=== PATIENT | male | born 1985 | race Hispanic/Latino ===

== ENCOUNTER 2018-06-30 14:16 | Emergency (ER) | payer SELFPAY ==
--- NOTE | 2018-06-30 15:04 | EDPHYS ---
Physician Documentation [facility] Name: Hiram Mobley Age: 32 yrs Sex: Male : 1985 Arrival Date: 06/30/2018 Time: 14:18 Bed 24 Private MD: None, None ED Physician Claus Stanford HPI: 06/30 14:49 This 32 yrs old Male presents to ER via Ambulatory with complaints of Rectal kb Pain. 14:49 The patient presents to the emergency department with pain in the rectal area, that is kb mild, that is moderate. Onset: The symptoms/episode began/occurred 3 day(s) ago. Context: the patient "I took a shit. A big one". Modifying factors: The symptoms are aggravated by bowel movement. Associate signs and symptoms: The patient has no apparent associated signs or symptoms. The patient has not experienced similar symptoms in the past. The patient has not recently seen a physician. Historical: - Allergies: 14:28 No Known Allergies; aj1 - Home Meds: 14:28 None [Active]; aj1 - PMHx: 14:28 None; aj1 - PSHx: 14:28 hand surgery; aj1 - Immunization history:: Flu vaccine is not up to date. - Social history:: Smoking status: Patient uses tobacco products, smokes one-half pack cigarettes per day. - Ebola Screening: : Patient denies travel to an Ebola-affected area in the 21 days before illness onset. ROS: 14:49 Constitutional: Negative for fever, chills, and weight loss, Cardiovascular: Negative kb for chest pain, palpitations, and edema, Respiratory: Negative for shortness of breath, cough, wheezing, and pleuritic chest pain, MS/Extremity: Negative for injury and deformity, Skin: Negative for injury, rash, and discoloration, Neuro: Negative for headache, weakness, numbness, tingling, and seizure. 14:49 Abdomen/GI: Positive for rectal pain. Exam: 14:52 Constitutional: This is a well developed, well nourished patient who is awake, alert, kb and in no acute distress. Head/Face: Normocephalic, atraumatic. Chest/axilla: Normal chest wall appearance and motion. Nontender with no deformity. No lesions are appreciated. Cardiovascular: Regular rate and rhythm with a normal S1 and S2. No gallops, murmurs, or rubs. Normal PMI, no JVD. No pulse deficits. Respiratory: Lungs have equal breath sounds bilaterally, clear to auscultation and percussion. No rales, rhonchi or wheezes noted. No increased work of breathing, no retractions or nasal flaring. Abdomen/GI: Soft, non-tender, with normal bowel sounds. No distension or tympany. No guarding or rebound. No evidence of tenderness throughout. Skin: Warm, dry with normal turgor. Normal color with no rashes, no lesions, and no evidence of cellulitis. MS/ Extremity: Pulses equal, no cyanosis. Neurovascular intact. Full, normal range of motion. Neuro: Awake and alert, GCS 15, oriented to person, place, time, and situation. Cranial nerves II-XII grossly intact. Motor strength 5/5 in all extremities. Sensory grossly intact. Cerebellar exam normal. Normal gait. 15:02 Abdomen/GI: Rectal exam: hemorrhoid(s), external, with inflammation, with pain, without kb bleeding, without thrombosis. Vital Signs: 14:28 BP 119 / 78; Pulse 75; Resp 18; Temp 98.2(TE); Pulse Ox 98% on R/A; Weight 83.91 kg aj1 (R); Height 5 ft. 10 in. (177.80 cm) (R); Pain 8/10; 14:28 Body Mass Index 26.54 (83.91 kg, 177.80 cm) aj1 MDM: 14:45 Patient medically screened. kb 14:49 Patient medically screened. kb 14:49 Data reviewed: vital signs, nurses notes. Data interpreted: Pulse oximetry: on room air kb is 98 %. Interpretation: normal. 15:02 Counseling: I had a detailed discussion with the patient and/or guardian regarding: the kb historical points, exam findings, and any diagnostic results supporting the discharge/admit diagnosis, the need for outpatient follow up, a family practitioner, a general surgeon. Administered Medications: No medications were administered Disposition: 07/01 07:01 Co-signature as Attending Physician, Claus Stanford MD I agree with the assessment and luis plan of care. Disposition: 06/30/18 15:03 Discharged to Home. Impression: Hemorrhoids and perianal venous thrombosis. - Condition is Stable. - Discharge Instructions: Hemorrhoids, [id number]. - Prescriptions for Anusol- HC 2.5 % Rectal Cream - Apply to affected area 1 application by TOPICAL route every 8 hours As needed; 30 gram. - Medication Reconciliation Form, Thank You Letter, Antibiotic Education, Prescription Opioid Use form. - Follow up: Emergency Department; When: As needed; Reason: Worsening of condition. Follow up: Private Physician; When: 2 - 3 days; Reason: Recheck today's complaints, Continuance of care, Re-evaluation by your physician. Signatures: Joi Downs, JUAN JOSE-C JUAN JOSE-Concetta Bose, RN RN aj1 Claus Stanford MD MD cha Lowrey, Tammy, RN RN tl3 Corrections: (The following items were deleted from the chart) 06/30 15:07 15:03 06/30/2018 15:03 Discharged to Home. Impression: Hemorrhoids and perianal venous tl3 thrombosis. Condition is Stable. Forms are Medication Reconciliation Form, Thank You Letter, Antibiotic Education, Prescription Opioid Use. Follow up: Emergency Department; When: As needed; Reason: Worsening of condition. Follow up: Private Physician; When: 2 - 3 days; Reason: Recheck today's complaints, Continuance of care, Re-evaluation by your physician. kb
--- NOTE | 2018-06-30 15:04 | ER ---
Nurse's Notes [facility] Name: Hiram Mobley Age: 32 yrs Sex: Male : 1985 Arrival Date: 06/30/2018 Time: 14:18 Bed 24 Private MD: None, None Diagnosis: Hemorrhoids and perianal venous thrombosis Presentation: 06/30 14:25 Presenting complaint: Patient states: Reports rectal pain for the past 2 days. Reports aj1 blood when he wipes, and some blood streaked stool. Denies N/V/D, denies constipation, denies abdominal pain. Transition of care: patient was not received from another setting of care. Onset of symptoms was June 28, 2018. Risk Assessment: Do you want to hurt yourself or someone else? Patient reports no desire to harm self or others. Initial Sepsis Screen: Does the patient meet any 2 criteria? No. Patient's initial sepsis screen is negative. Does the patient have a suspected source of infection? No. Patient's initial sepsis screen is negative. Care prior to arrival: None. 14:25 Method Of Arrival: Ambulatory aj 14:25 Acuity: HEIDI 4 aj1 Triage Assessment: 14:28 General: Appears in no apparent distress. uncomfortable, Behavior is calm, cooperative, aj1 appropriate for age. Pain: Complains of pain in gluteal cleft Pain currently is 8 out of 10 on a pain scale. Neuro: Level of Consciousness is awake, alert, obeys commands. Cardiovascular: Patient's skin is warm and dry. Respiratory: Airway is patent Respiratory effort is even, unlabored, Respiratory pattern is regular, symmetrical. Historical: - Allergies: 14:28 No Known Allergies; aj1 - Home Meds: 14:28 None [Active]; aj1 - PMHx: 14:28 None; aj1 - PSHx: 14:28 hand surgery; aj1 - Immunization history:: Flu vaccine is not up to date. - Social history:: Smoking status: Patient uses tobacco products, smokes one-half pack cigarettes per day. - Ebola Screening: : Patient denies travel to an Ebola-affected area in the 21 days before illness onset. Screenin:56 Abuse screen: Denies threats or abuse. Nutritional screening: No deficits noted. tl3 Tuberculosis screening: No symptoms or risk factors identified. Fall Risk None identified. Assessment: 14:56 General: Appears in no apparent distress. uncomfortable, slender, well groomed, well tl3 developed, well nourished, Behavior is calm, cooperative, appropriate for age. Pain: Complains of pain in rectum. Neuro: Level of Consciousness is awake, alert, obeys commands, Oriented to person, place, time, situation, Appropriate for age. Cardiovascular: Patient's skin is warm and dry. Respiratory: Airway is patent Respiratory effort is even, unlabored, Respiratory pattern is regular, symmetrical. GI: Reports hemorrhoids, two days ago pt had BM that was painful and there was a small amt of blood when he wiped, today it happened again, he took a picture of his rectum with a purple protrusion. Vital Signs: 14:28 BP 119 / 78; Pulse 75; Resp 18; Temp 98.2(TE); Pulse Ox 98% on R/A; Weight 83.91 kg aj1 (R); Height 5 ft. 10 in. (177.80 cm) (R); Pain 8/10; 14:28 Body Mass Index 26.54 (83.91 kg, 177.80 cm) aj1 ED Course: 14:18 Patient arrived in ED. sb2 14:19 None, None is Private Physician. sb2 14:28 Triage completed. aj1 14:29 Joi Downs FNP-C is PHCP. kb 14:29 Claus Stanford MD is Attending Physician. kb 14:30 Arm band placed on Patient placed in waiting room, Patient notified of wait time. aj1 14:45 Joi Downs FNP-C is PHCP. kb 14:45 Claus Stanford MD is Attending Physician. kb 14:53 Debbie Whittaker, FRANCES is Primary Nurse. tl3 14:56 Patient has correct armband on for positive identification. Placed in gown. Bed in low tl3 position. 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 Patient did not have IV access during this tl3 emergency room visit. Administered Medications: No medications were administered Outcome: 15:03 Discharge ordered by . kb 15:07 Discharged to tl3 15:07 Discharged to home ambulatory. 15:07 Condition: good 15:07 Discharge instructions given to patient, Instructed on discharge instructions, follow up and referral plans. medication usage, Demonstrated understanding of instructions, follow-up care, medications, Prescriptions given X 1. 15:07 Patient left the ED. tl3 Signatures: Joi Downs, JUAN JOSE-C LAW ENFORCEMENT INSTRUCTOR-Concetta Bose RN RN aj1 Kenzie Anderson sb2 Debbie Whittaker, RN RN tl3 Corrections: (The following items were deleted from the chart) 14:30 14:28 Arm band placed on Patient placed in an exam room, aj1 aj1
== END 2018-06-30 15:07 | disposition home or self-care (01) ==
LOC: ER 14:16
DX: K64.5 Perianal venous thrombosis (principal); K64.9 Unspecified hemorrhoids; F17.210 Nicotine dependence, cigarettes, uncomplicated
CPT/HCPCS: 99283

== ENCOUNTER 2018-09-15 11:26 | Emergency (ER) | payer SELFPAY ==
[2018-09-15 12:23] LABS: Absolute Lymphocytes (CBC) 1.9 K/uL (0.7-4.9); Absolute Monocytes 0.7 K/uL (0.1-1.3); Basophils % 0.6 % (0-1.3); Eosinophils % 2.5 % (0-4.4); Hematocrit 42.1 % (39.6-49.0); MCV 91.2 fL (80-100); MPV 8.2 fL (7.6-11.3); Monocytes % 12.6 % (3.3-12.3); RBC Red Blood Cell Count 4.62 M/uL (4.33-5.43)
[2018-09-15 12:38] LABS: Protime INR 0.95
[2018-09-15 12:45] LABS: ALT/SGPT 23 U/L (12-78); AST/SGOT 19 U/L (15-37); Albumin 3.6 g/dL (3.4-5.0); Alkaline Phosphatase 61 U/L (45-117); BUN Blood Urea Nitrogen 13 mg/dL (7-18); Bicarbonate 29 mmol/L (21-32); Bilirubin Direct 0.2 mg/dL (0-0.2); Bilirubin Total 0.5 mg/dL (0.2-1.0); Glucose Level 94 mg/dL (74-106); Lipase 100 U/L (73-393); Protein, Total 7.1 g/dL (6.4-8.2); Sodium Level 140 mmol/L (136-145)
--- NOTE | 2018-09-15 13:59 | EDPHYS ---
Physician Documentation [facility] Name: Hiram Mobley Age: 33 yrs Sex: Male : 1985 Arrival Date: 09/15/2018 Time: 11:29 Bed 19 Private MD: ED Physician Claus Stanford HPI: 09/15 12:05 This 33 yrs old Male presents to ER via Ambulatory with complaints of Bloody cp Stools. 12:05 The patient presents to the emergency department with bleeding from the rectum/anus. cp Onset: The symptoms/episode began/occurred this morning. Context: the patient has no known special context relating to the rectal area complaint(s), noticed in toilet after bowel movement. 12:05 Associate signs and symptoms: Pertinent negatives: abdominal pain, constipation, cp diarrhea, dysuria, fever, vomiting. Historical: - Allergies: 11:35 No Known Allergies; jl7 - Home Meds: 11:35 None [Active]; jl7 - PMHx: 11:35 None; jl7 - PSHx: 11:35 right hand; jl7 - Immunization history:: Adult Immunizations not up to date. - Social history:: Smoking status: Patient uses tobacco products, smokes one pack cigarettes per day. Patient uses alcohol, 40 oz /day. - Ebola Screening: : No symptoms or risks identified at this time. ROS: 12:10 Constitutional: Negative for body aches, chills, fever, poor PO intake. cp 12:10 Eyes: Negative for injury, pain, redness, and discharge. cp 12:10 ENT: Negative for drainage from ear(s), ear pain, sore throat, difficulty swallowing, difficulty handling secretions. 12:10 Cardiovascular: Negative for chest pain, edema, palpitations. 12:10 Respiratory: Negative for cough, shortness of breath, wheezing. 12:10 Abdomen/GI: Positive for rectal bleeding, Negative for abdominal pain, vomiting, diarrhea, constipation, anorexia. 12:10 : Negative for urinary symptoms. 12:10 Skin: Negative for cellulitis, rash. 12:10 Neuro: Negative for altered mental status, headache, syncope, near syncope, weakness. 12:10 All other systems are negative. Exam: 12:25 Constitutional: The patient appears in no acute distress, alert, awake, comfortable, cp non-toxic, well developed, well nourished. 12:25 Head/Face: Normocephalic, atraumatic. Eyes: Pupils equal round and reactive to light, cp extra-ocular motions intact. Lids and lashes normal. Conjunctiva and sclera are non-icteric and not injected. Cornea within normal limits. Periorbital areas with no swelling, redness, or edema. ENT: Nares patent. No nasal discharge, no septal abnormalities noted. Tympanic membranes are normal and external auditory canals are clear. Oropharynx with no redness, swelling, or masses, exudates, or evidence of obstruction, uvula midline. Mucous membranes moist. Chest/axilla: Normal chest wall appearance and motion. Nontender with no deformity. No lesions are appreciated. 12:25 Cardiovascular: Rate: bradycardic, Rhythm: regular, Heart sounds: murmur, not appreciated, Edema: is not appreciated. 12:25 Respiratory: the patient does not display signs of respiratory distress, Respirations: normal, no use of accessory muscles, no retractions, no splinting, no tachypnea, labored breathing, is not present, Breath sounds: are clear throughout, no decreased breath sounds, no stridor, no wheezing. 12:25 Abdomen/GI: Inspection: abdomen appears normal, Bowel sounds: active, all quadrants, Palpation: abdomen is soft and non-tender, in all quadrants, rebound tenderness, is not appreciated, involuntary guarding, is not appreciated. 12:25 Back: pain, is absent, ROM is normal. 12:25 : Rectal exam: Stool: brown, Guaiac testing: results were negative for occult blood, hemorrhoid(s), are not appreciated, fissure, is not appreciated. 12:25 Skin: cellulitis, is not appreciated, no rash present. Vital Signs: 11:35 BP 126 / 81; Pulse 54; Resp 16 S; Temp 98.1(O); Pulse Ox 99% on R/A; Weight 79.83 kg jl7 (R); Height 5 ft. 9 in. (175.26 cm) (R); Pain 0/10; 12:15 BP 126 / 74; Pulse 56 MON; Resp 17 S; Temp 98.1; Pulse Ox 99% on R/A; Pain 0/10; sg 13:20 BP 122 / 80; Pulse 55; Resp 16; Temp 98.2; Pulse Ox 99% on R/A; Pain 0/10; sg 11:35 Body Mass Index 25.99 (79.83 kg, 175.26 cm) jl7 MDM: 11:38 Patient medically screened. cp 12:00 Differential diagnosis: hemorrhoids, fissure, abscess. cp 13:57 Data reviewed: vital signs, nurses notes, lab test result(s). 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 ED course: VSS. Labs reviewed and stable. Will discharge to home for continued monitoring. 09/15 11:52 Order name: Basic Metabolic Panel; Complete Time: 12:50 cp 09/15 11:52 Order name: CBC with Diff; Complete Time: 12:32 cp 09/15 12:32 Interpretation: Normal except: MN% 12.6. cp 09/15 11:52 Order name: Creatinine for Radiology; Complete Time: 12:50 cp 09/15 11:52 Order name: Hepatic Function; Complete Time: 12:50 cp 09/15 11:52 Order name: Lipase; Complete Time: 12:50 cp 09/15 11:52 Order name: PT-INR; Complete Time: 12:50 cp 09/15 11:52 Order name: IV Saline Lock; Complete Time: 12:14 cp 09/15 11:52 Order name: Labs collected and sent; Complete Time: 12:14 cp 09/15 11:52 Order name: Ptt, Activated; Complete Time: 12:50 cp Administered Medications: No medications were administered Disposition: 09/16 08:55 Co-signature as Attending Physician, Claus Stanford MD I agree with the assessment and luis plan of care. Disposition: 09/15/18 13:58 Discharged to Home. Impression: Blood in Stool. - Condition is Stable. - Discharge Instructions: Gastrointestinal Bleeding. - Work release form, Medication Reconciliation Form, Thank You Letter, Antibiotic Education, Prescription Opioid Use form. - Follow up: Rodolfo Muniz MD; When: 1 - 2 days; Reason: Recheck today's complaints. - Problem is new. - Symptoms have improved. Signatures: Dispatcher [employer] EDMS Leatha Santiago Claus Terrell MD MD cha Page, Corey, PA PA cp Leal, Jahala, RN RN jl7 Corrections: (The following items were deleted from the chart) 09/15 14:08 13:58 09/15/2018 13:58 Discharged to Home. Impression: Blood in Stool. Condition is bd Stable. Forms are Work release form, Medication Reconciliation Form, Thank You Letter, Antibiotic Education, Prescription Opioid Use. Follow up: Rodolfo Muniz; When: 1 - 2 days; Reason: Recheck today's complaints. Problem is new. Symptoms have improved. cp :09/14 12:15 Constitutional: The patient appears in no acute distress, alert, awake, cp non-toxic, well developed, well nourished, cp 09/15 18:09/14 12:15 Head/Face: Normocephalic, atraumatic. cp cp 09/15 18:09/14 12:15 Eyes: Periorbital structures: appear normal, Conjunctiva: normal, no cp exudate, no injection, Sclera: no appreciated abnormality, Lids and lashes: appear normal, bilaterally, cp 09/15 18:09/14 12:15 ENT: External ear(s): are unremarkable, Nose: is normal, Mouth: Lips: cp moist, Oral mucosa: pink and intact, moist, Posterior pharynx: is normal, airway is patent, no erythema, no exudate, cp 09/15 18:09/14 12:15 Chest/axilla: Inspection: normal, Palpation: is normal, no crepitus, no cp tenderness, cp 09/15 18:09/14 12:15 Cardiovascular: Rate: bradycardic, Rhythm: regular, cp cp 09/15 18:09/14 12:15 Respiratory: the patient does not display signs of respiratory distress, cp Respirations: normal, no use of accessory muscles, no retractions, no splinting, no tachypnea, labored breathing, is not present, Breath sounds: are clear throughout, no decreased breath sounds, no stridor, no wheezing, cp 09/15 18:09/14 12:15 Abdomen/GI: Inspection: abdomen appears normal, Bowel sounds: active, all cp quadrants, Palpation: abdomen is soft and non-tender, in all quadrants, rebound tenderness, is not appreciated, voluntary guarding, is not appreciated, involuntary guarding, is not appreciated, cp 09/15 18:09/14 12:15 Back: pain, is absent, ROM is normal, cp cp 09/15 18:09/14 12:15 Skin: cellulitis, is not appreciated, no rash present. cp cp 09/15 18:09/14 12:15 Neuro: Orientation: to person, place \T\ time. Mentation: is normal, cp Cerebellar function: is grossly normal, Motor: moves all fours, strength is normal, Sensation: is normal, cp
--- NOTE | 2018-09-15 13:59 | ER ---
Nurse's Notes [facility] Name: Hiram Mobley Age: 33 yrs Sex: Male : 1985 Arrival Date: 09/15/2018 Time: 11:29 Bed 19 Private MD: Diagnosis: Blood in Stool Presentation: 09/15 11:33 Presenting complaint: Patient states: Reports a lot of blood in the toilet after having jl7 a BM this morning. Transition of care: patient was not received from another setting of care. Onset of symptoms was September 15, 2018. Risk Assessment: Do you want to hurt yourself or someone else? Patient reports no desire to harm self or others. Initial Sepsis Screen: Does the patient meet any 2 criteria? No. Patient's initial sepsis screen is negative. Does the patient have a suspected source of infection? No. Patient's initial sepsis screen is negative. Care prior to arrival: None. 11:33 Method Of Arrival: Ambulatory [facility] 11:33 Acuity: HEIDI 3 jl7 Triage Assessment: 11:35 General: Appears in no apparent distress. uncomfortable, Behavior is cooperative, jl7 anxious. Pain: Denies pain. GI: Reports bloody stool, Patient currently denies diarrhea, nausea, vomiting. Historical: - Allergies: 11:35 No Known Allergies; jl7 - Home Meds: 11:35 None [Active]; jl7 - PMHx: 11:35 None; jl7 - PSHx: 11:35 right hand; jl7 - Immunization history:: Adult Immunizations not up to date. - Social history:: Smoking status: Patient uses tobacco products, smokes one pack cigarettes per day. Patient uses alcohol, 40 oz /day. - Ebola Screening: : No symptoms or risks identified at this time. Screenin:51 Abuse screen: Denies threats or abuse. Denies injuries from another. Nutritional sg screening: No deficits noted. Tuberculosis screening: No symptoms or risk factors identified. Never had TB. Fall Risk None identified. Assessment: 11:50 General: Appears in no apparent distress. comfortable, slender, well groomed, well sg developed, well nourished, Behavior is calm, cooperative, appropriate for age. Pain: Denies pain. Neuro: No deficits noted. Cardiovascular: Patient's skin is warm and dry. Respiratory: Respiratory effort is even, unlabored, Respiratory pattern is regular, symmetrical. GI: Reports diarrhea, bloody stool, Patient currently denies constipation, nausea, vomiting. : No signs and/or symptoms were reported regarding the genitourinary system. EENT: No deficits noted. Derm: Skin is pink, warm \T\ dry. Musculoskeletal: Circulation, motion, and sensation intact. Swelling absent. Vital Signs: 11:35 BP 126 / 81; Pulse 54; Resp 16 S; Temp 98.1(O); Pulse Ox 99% on R/A; Weight 79.83 kg jl7 (R); Height 5 ft. 9 in. (175.26 cm) (R); Pain 0/10; 12:15 BP 126 / 74; Pulse 56 MON; Resp 17 S; Temp 98.1; Pulse Ox 99% on R/A; Pain 0/10; sg 13:20 BP 122 / 80; Pulse 55; Resp 16; Temp 98.2; Pulse Ox 99% on R/A; Pain 0/10; sg 11:35 Body Mass Index 25.99 (79.83 kg, 175.26 cm) jl7 ED Course: 11:29 Patient arrived in ED. as 11:34 Triage completed. jl7 11:36 Arm band placed on right wrist. jl7 11:38 [facility]. cp 11:38 Claus Stanford MD is Attending Physician. cp 11:50 Logan Reynolds, FRANCES is Primary Nurse. sg 11:50 Initial lab(s) drawn, by in, sent to lab. Inserted saline lock: 20 gauge in right sg antecubital area, using aseptic technique. Blood collected. 11:51 Patient has correct armband on for positive identification. Bed in low position. Call sg light in reach. Side rails up X2. Pulse ox on. NIBP on. Warm blanket given. Head of bed elevated. 13:57 Rodolfo Muniz MD is Referral Physician. cp 14:05 No provider procedures requiring assistance completed. IV discontinued, intact, sg bleeding controlled, No redness/swelling at site. Pressure dressing applied. Administered Medications: No medications were administered Outcome: 13:58 Discharge ordered by . cp 14:05 Discharged to home ambulatory, with family. sg 14:05 Condition: good 14:05 Discharge instructions given to patient, Instructed on discharge instructions, follow up and referral plans. medication usage, safety practices, Demonstrated understanding of instructions, follow-up care. 14:08 Patient left the ED. bd Signatures: Leatha Santiago Steven, RN RN Tootie Yanez Corey, PA PA cp Leal, Jahala, RN RN jl7
== END 2018-09-15 14:08 | disposition home or self-care (01) ==
LOC: ER 11:26
DX: K92.1 Melena (principal); F17.210 Nicotine dependence, cigarettes, uncomplicated
CPT/HCPCS: 36415; 80048; 80076; 83690; 85025; 85610; 85730; 99284

== ENCOUNTER 2018-09-24 13:52 | Emergency (ER) | payer SELFPAY ==
[2018-09-24] MEDS ORDERED: METOCLOPRAMIDE 10 MG/2mL INJ ONE (15:00)
[2018-09-24] MEDS ORDERED: hydrOXYzine HCl 50 MG/ML VIAL IM ONE (15:00)
--- NOTE | 2018-09-24 15:20 | RAD REPORT ---
EXAM DESCRIPTION: US - Extremity Nonvascular Complete - 09/24/2018 3:10 pm CLINICAL HISTORY: Right axillary mass COMPARISON: None FINDINGS: Patient has a palpable area within the right axilla. A 2.9 centimeter hypoechoic mass is s een which contains vascularity. IMPRESSION: 2.9 centimeter hypoechoic mass within the right axilla which is palpable probably repres enting a lymph node. It may be reactive in nature or neoplastic. Follow-up is recommend
[2018-09-24 15:29] LABS: BUN Blood Urea Nitrogen 16 mg/dL (7-18); Bicarbonate 29 mmol/L (21-32); Glucose Level 93 mg/dL (74-106); Potassium 4.4 mmol/L (3.5-5.1); Sodium Level 139 mmol/L (136-145)
--- NOTE | 2018-09-24 15:32 | RAD REPORT ---
EXAM DESCRIPTION: CT - Head Brain Wo Cont - 09/24/2018 2:55 pm CLINICAL HISTORY: Headache COMPARISON: None. TECHNIQUE: Computed axial tomography of the head was obtained. IV contrast was not requested. All CT scans are performed using dose optimization technique as appropriate and may include automated exposure control or mA/KV adjustment according to patient size. FINDINGS: An intracranial bleed is not seen . The ventricles are normal in caliber. No extra-axial fluid collection is noted. Fluid within the sinuses/ mastoids is not seen. IMPRESSION: No acute intracranial abnormality is seen. If patient's symptoms persist MRI of the bra in would be recommended.
[2018-09-24 15:33] LABS: Absolute Lymphocytes (CBC) 1.8 K/uL (0.7-4.9); Absolute Monocytes 0.9 K/uL (0.1-1.3); Absolute Neutrophil 3.8 K/uL (1.8-8.0); Basophils % 0.6 % (0-1.3); Eosinophils % 2.1 % (0-4.4); Hematocrit 43.5 % (39.6-49.0); MCH 31.6 pg (27.0-35.0); MCV 90.7 fL (80-100); MPV 8.4 fL (7.6-11.3); Monocytes % 13.4 % (3.3-12.3); RBC Red Blood Cell Count 4.79 M/uL (4.33-5.43)
--- NOTE | 2018-09-24 15:53 | ER ---
Nurse's Notes [facility] Name: Hiram Mobley Age: 33 yrs Sex: Male : 1985 Arrival Date: 09/24/2018 Time: 13:54 Bed 13 Private MD: None, None Diagnosis: Acute lymphadenitis;Migraine Presentation: 09/24 14:11 Presenting complaint: Patient states: "I've been having these massive headaches and my aj1 eyes always hurt. Lights look brighter than usual. I have this pain in my chest." Reports left sided chest pain for the past 2 weeks. Denies SOB, palpitations Reports dizziness and "fever every other morning". Transition of care: patient was not received from another setting of care. Onset of symptoms was September 24, 2018. Risk Assessment: Do you want to hurt yourself or someone else? Patient reports no desire to harm self or others. Initial Sepsis Screen: Does the patient meet any 2 criteria? HR > 90 bpm. No. Patient's initial sepsis screen is negative. Does the patient have a suspected source of infection? No. Patient's initial sepsis screen is negative. Care prior to arrival: None. 14:11 Method Of Arrival: Ambulatory aj1 14:11 Acuity: HEIDI 3 aj1 Triage Assessment: 14:13 General: Appears in no apparent distress. comfortable, Behavior is calm, cooperative, aj1 appropriate for age. Pain: Complains of pain in face and anterior aspect of right upper chest Pain currently is 5 out of 10 on a pain scale. Neuro: Level of Consciousness is awake, alert, obeys commands. Cardiovascular: Patient's skin is warm and dry. Respiratory: Airway is patent Respiratory effort is even, unlabored, Respiratory pattern is regular, symmetrical. Historical: - Allergies: 14:13 No Known Allergies; aj1 - Home Meds: 14:13 None [Active]; aj1 - PMHx: 14:13 None; aj1 - PSHx: 14:13 None; aj1 - Immunization history:: Flu vaccine is not up to date. - Social history:: Smoking status: Patient uses tobacco products, smokes one-half pack cigarettes per day. - Ebola Screening: : Patient denies travel to an Ebola-affected area in the 21 days before illness onset. Screenin:19 Abuse screen: Denies threats or abuse. Denies injuries from another. Nutritional hj screening: No deficits noted. Tuberculosis screening: No symptoms or risk factors identified. Fall Risk None identified. Assessment: 14:19 Pain: Pain does not radiate. Pain began suddenly. hj 16:02 Reassessment: D/C instructions given;. hj Vital Signs: 14:13 BP 108 / 79; Pulse 90; Resp 20; Temp 97.8; Pulse Ox 95% on R/A; Weight 77.11 kg (R); aj1 Height 5 ft. 10 in. (177.80 cm) (R); Pain 5/10; 16:02 BP 120 / 80; Pulse 89; Resp 18; Pulse Ox 100% on R/A; hj 14:13 Body Mass Index 24.39 (77.11 kg, 177.80 cm) aj1 ED Course: 13:54 Patient arrived in ED. sb2 13:54 None, None is Private Physician. sb2 14:13 Triage completed. aj1 14:13 Arm band placed on Patient placed in an exam room. aj1 14:18 Sam Newell, RN is Primary Nurse. hj 14:19 Patient has correct armband on for positive identification. Placed in gown. Bed in low hj position. Call light in reach. Side rails up X 1. 14:19 personnel monitor on. Pulse ox on. NIBP on. hj 14:19 Patient maintains SpO2 saturation greater than 95% on room air. hj 14:20 Tarik Barrow PA is PHCP. jr8 14:20 Matthew Wilson MD is Attending Physician. jr8 14:33 EKG done, by windows server support technician. reviewed by Tarik GUTIERREZ. 3 14:50 Initial lab(s) drawn, by or, sent to lab. Inserted saline lock: 22 gauge in right hj antecubital area, using aseptic technique. Blood collected. 14:53 Basic Metabolic Panel Sent. hj 14:53 CBC with Diff Sent. hj 14:55 CT Head Brain wo Cont In Process Unspecified. EDMS 15:10 Extremity Nonvascular Complete In Process Unspecified. EDMS 15:16 Ultrasound completed. hr 15:34 X-ray completed. Portable x-ray completed in exam room. Patient tolerated procedure ml well. 15:35 XRAY Chest (1 view) In Process Unspecified. EDMS 16:03 No provider procedures requiring assistance completed. IV discontinued, intact, hj bleeding controlled, No redness/swelling at site. Pressure dressing applied. Administered Medications: 15:15 Drug: Reglan 10 mg Route: IVP; Site: right antecubital; 15:47 Follow up: Response: No adverse reaction hj 15:15 Drug: hydrOXYzine 25 mg {Note: given IM per provider order; R deltoid.} Route: PO; hj 15:47 Follow up: Response: No adverse reaction Outcome: 15:53 Discharge ordered by MD. fuller 16:03 Discharged to home ambulatory. hj 16:03 Condition: stable 16:03 Discharge instructions given to patient, Instructed on discharge instructions, follow up and referral plans. medication usage, Demonstrated understanding of instructions, follow-up care, medications, Prescriptions given X 2. 16:04 Patient left the ED. axel Signatures: Dispatcher [employer] EDMS Concetta Cardenas RN RN aj1 Nubia Rashid Melissa ml Roszak, Josh, PA PA jr8 Sam Newell RN RN hj Billeau, Sheri sb2 Paris Lehman 3
--- NOTE | 2018-09-24 15:53 | EDPHYS ---
Physician Documentation [facility] Name: Hiram Mobley Age: 33 yrs Sex: Male : 1985 Arrival Date: 09/24/2018 Time: 13:54 Bed 13 Private MD: None, None ED Physician Matthew Wilson HPI: 09/24 15:35 This 33 yrs old Male presents to ER via Ambulatory with complaints of Chest jr8 Pain, Headache. 15:35 Patient stated that he has felt pain in his right axillary region for the past two jr8 weeks. Not getting better. Denies trauma. Stated that he has had headache about the same amount of time as well. Feels that he will jumble his words sometime which he has not done in past . Severity of symptoms: At their worst the symptoms were mild in the emergency department the symptoms are unchanged. The patient has not experienced similar symptoms in the past. The patient has not recently seen a physician. Historical: - Allergies: 14:13 No Known Allergies; aj1 - Home Meds: 14:13 None [Active]; aj1 - PMHx: 14:13 None; aj1 - PSHx: 14:13 None; aj1 - Immunization history:: Flu vaccine is not up to date. - Social history:: Smoking status: Patient uses tobacco products, smokes one-half pack cigarettes per day. - Ebola Screening: : Patient denies travel to an Ebola-affected area in the 21 days before illness onset. ROS: 15:35 Eyes: Negative for injury, pain, redness, and discharge, ENT: Negative for injury, jr8 pain, and discharge, Neck: Negative for injury, pain, and swelling, Cardiovascular: Negative for chest pain, palpitations, and edema, Respiratory: Negative for shortness of breath, cough, wheezing, and pleuritic chest pain, Abdomen/GI: Negative for abdominal pain, nausea, vomiting, diarrhea, and constipation, Back: Negative for injury and pain, MS/Extremity: Negative for injury and deformity, Skin: Negative for injury, rash, and discoloration. 15:35 Neuro: Positive for headache, Negative for altered mental status, dizziness, gait disturbance, hearing loss, loss of consciousness, numbness, seizure activity, speech changes, syncope, near syncope, tingling, tinnitus, tremor, visual changes, weakness. Exam: 15:35 Head/Face: Normocephalic, atraumatic. Eyes: Pupils equal round and reactive to light, jr8 extra-ocular motions intact. Lids and lashes normal. Conjunctiva and sclera are non-icteric and not injected. Cornea within normal limits. Periorbital areas with no swelling, redness, or edema. ENT: Nares patent. No nasal discharge, no septal abnormalities noted. Tympanic membranes are normal and external auditory canals are clear. Oropharynx with no redness, swelling, or masses, exudates, or evidence of obstruction, uvula midline. Mucous membranes moist. Neck: Trachea midline, no thyromegaly or masses palpated, and no cervical lymphadenopathy. Supple, full range of motion without nuchal rigidity, or vertebral point tenderness. No Meningismus. Cardiovascular: Regular rate and rhythm with a normal S1 and S2. No gallops, murmurs, or rubs. Normal PMI, no JVD. No pulse deficits. Respiratory: Lungs have equal breath sounds bilaterally, clear to auscultation and percussion. No rales, rhonchi or wheezes noted. No increased work of breathing, no retractions or nasal flaring. Abdomen/GI: Soft, non-tender, with normal bowel sounds. No distension or tympany. No guarding or rebound. No evidence of tenderness throughout. Back: No spinal tenderness. No costovertebral tenderness. Full range of motion. Skin: Warm, dry with normal turgor. Normal color with no rashes, no lesions, and no evidence of cellulitis. MS/ Extremity: Pulses equal, no cyanosis. Neurovascular intact. Full, normal range of motion. Neuro: Awake and alert, GCS 15, oriented to person, place, time, and situation. Cranial nerves II-XII grossly intact. Motor strength 5/5 in all extremities. Sensory grossly intact. Cerebellar exam normal. Normal gait. 15:35 Chest/axilla: Inspection: normal, Palpation: tenderness, is not appreciated, Axilla: mass, that is moderate in size, of the right axilla, that is not freely movable, with tenderness. Vital Signs: 14:13 BP 108 / 79; Pulse 90; Resp 20; Temp 97.8; Pulse Ox 95% on R/A; Weight 77.11 kg (R); aj1 Height 5 ft. 10 in. (177.80 cm) (R); Pain 5/10; 16:02 BP 120 / 80; Pulse 89; Resp 18; Pulse Ox 100% on R/A; hj 14:13 Body Mass Index 24.39 (77.11 kg, 177.80 cm) aj1 MDM: 14:21 Patient medically screened. jr8 15:51 Data reviewed: vital signs, nurses notes, lab test result(s), radiologic studies, CT jr8 scan, ultrasound, and as a result, I will discharge patient. Data interpreted: Pulse oximetry: on room air is 95 %. Interpretation: normal. Counseling: I had a detailed discussion with the patient and/or guardian regarding: the historical points, exam findings, and any diagnostic results supporting the discharge/admit diagnosis, lab results, radiology results, the need for outpatient follow up, a family practitioner, to return to the emergency department if symptoms worsen or persist or if there are any questions or concerns that arise at home. ED course: Discussed with patient that after he finished his course of antibiotics that he would need another US to determine if the lymph node is resolving. 09/24 14:42 Order name: CBC with Diff; Complete Time: 15:46 jr8 09/24 14:42 Order name: Basic Metabolic Panel; Complete Time: 15:34 jr8 09/24 14:42 Order name: CT Head Brain wo Cont; Complete Time: 15:34 jr8 09/24 14:44 Order name: Extremity Nonvascular Complete; Complete Time: 15:25 EDMS 09/24 15:26 Order name: XRAY Chest (1 view); Complete Time: 16:27 jr8 Administered Medications: 15:15 Drug: Reglan 10 mg Route: IVP; Site: right antecubital; hj 15:47 Follow up: Response: No adverse reaction hj 15:15 Drug: hydrOXYzine 25 mg {Note: given IM per provider order; R deltoid.} Route: PO; hj 15:47 Follow up: Response: No adverse reaction Disposition: 16:28 Co-signature as Attending Physician, Matthew Wilson MD I agree with the assessment and kdr plan of care. Disposition: 09/24/18 15:53 Discharged to Home. Impression: Acute lymphadenitis, Migraine. - Condition is Stable. - Discharge Instructions: Migraine Headache, Lymphadenopathy. - Prescriptions for Fioricet 50- 325-40 mg Oral tablet - take 2 tablet by ORAL route every 4 hours as needed not to exceed 6 tablets per 24hrs; 20 tablet. Augmentin 875- 125 mg Oral Tablet - take 1 tablet by ORAL route every 12 hours for 10 days; 20 tablet. - Medication Reconciliation Form, Thank You Letter, Antibiotic Education, Prescription Opioid Use form. - Follow up: Private Physician; When: 10 - 14 days; Reason: Recheck today's complaints, Continuance of care, Re-evaluation by your physician. - Problem is new. - Symptoms have improved. Signatures: Dispatcher [employer] [facility] Concetta Cardenas RN RN aj1 Matthew Wilson MD MD kdr Tarik Barrow PA PA jr8 Sam Newell RN RN hj Corrections: (The following items were deleted from the chart) 14:44 14:42 Extrmty Nonvasular Limited+US.RAD.BRZ ordered. [facility] 15:54 15:53 09/24/2018 15:53 Discharged to Home. Impression: Acute lymphadenitis. Condition jr8 is Stable. Forms are Medication Reconciliation Form, Thank You Letter, Antibiotic Education, Prescription Opioid Use. Follow up: Private Physician; When: 10 - 14 days; Reason: Recheck today's complaints, Continuance of care, Re-evaluation by your physician. Problem is new. Symptoms have improved. jr8 16:04 15:54 09/24/2018 15:53 Discharged to Home. Impression: Acute lymphadenitis; Migraine. hj Condition is Stable. Discharge Instructions: Lymphadenopathy. Prescriptions for Fioricet 50-325-40 mg Oral tablet - take 2 tablet by ORAL route every 4 hours as needed not to exceed 6 tablets per 24hrs; 20 tablet, Augmentin 875-125 mg Oral Tablet - take 1 tablet by ORAL route every 12 hours for 10 days; 20 tablet. and Forms are Medication Reconciliation Form, Thank You Letter, Antibiotic Education, Prescription Opioid Use. Follow up: Private Physician; When: 10 - 14 days; Reason: Recheck today's complaints, Continuance of care, Re-evaluation by your physician. Problem is new. Symptoms have improved. jr8
--- NOTE | 2018-09-24 15:58 | RAD REPORT ---
EXAM DESCRIPTION: Michael Single View09/24/2018 3:36 pm CLINICAL HISTORY: Chest pain COMPARISON: none FINDINGS: The lungs appear clear of acute infiltrate. The heart is normal size IMPRESSION: No acute abnormalities displayed
--- NOTE | 2018-09-25 07:09 | EKG ---
Test Date: 2018-09-24 Test Time: 14:27:23 Pipeline Construction Inspector: RAUDEL MEASUREMENT RESULTS: Intervals: Rate: 71 DC: 152 QRSD: 98 QT: 362 QTc: 393 Taft: P: 57 DC: 152 QRS: 69 T: 55 INTERPRETIVE STATEMENTS: Normal sinus rhythm ST elevation, consider early repolarization, pericarditis, or injury Abnormal ECG No previous ECG available for comparison Electronically Signed On 09-25-18 07:07:10 SCCM ADMINISTRATOR by Jet Enriquez
== END 2018-09-24 16:04 | disposition home or self-care (01) ==
LOC: ER 13:52
DX: G43.909 Migraine, unspecified, not intractable, without status migrainosus (principal); F17.210 Nicotine dependence, cigarettes, uncomplicated
CPT/HCPCS: 36415; 70450; 71045; 76881; 80048; 85025; 93005; 96374; 99285; J2765; J3410

== ENCOUNTER 2019-03-01 11:54 | Emergency (ER) | payer SELFPAY ==
--- NOTE | 2019-03-01 13:03 | EDPHYS ---
Physician Documentation [facility] Name: Hiram Mobley Age: 33 yrs Sex: Male : 1985 Arrival Date: 03/01/2019 Time: 11:56 Bed 9 Private MD: None, None ED Physician Claus Stanford HPI: 03/01 13:05 This 33 yrs old Male presents to ER via Ambulatory with complaints of Wrist kb Pain. 13:05 The patient or guardian reports pain. The complaints affect the left wrist diffusely, kb right wrist diffusely. Context: resulted from an unknown cause. Onset: The symptoms/episode began/occurred 15 year(s) ago. Modifying factors: The symptoms are alleviated by nothing, the symptoms are aggravated by lifting dumbbells, certain positions (unable to reproduce pain at this time). Associated signs and symptoms: The patient has no apparent associated signs or symptoms. Compartment Syndrome negative for numbness, pain, tingling. The patient has not experienced similar symptoms in the past. The patient has not recently seen a physician. Historical: - Allergies: 12:00 No Known Allergies; ss - Home Meds: 12:00 None [Active]; ss - PMHx: 12:00 None; ss - PSHx: 12:00 R hand; ss - Immunization history:: Adult Immunizations up to date. - Social history:: Smoking status: Patient/guardian denies using tobacco. - Ebola Screening: : Patient denies exposure to infectious person Patient denies travel to an Ebola-affected area in the 21 days before illness onset. ROS: 13:03 Constitutional: Negative for fever, chills, and weight loss, ENT: Negative for injury, kb pain, and discharge, Neck: Negative for injury, pain, and swelling, Cardiovascular: Negative for chest pain, palpitations, and edema, Respiratory: Negative for shortness of breath, cough, wheezing, and pleuritic chest pain, Abdomen/GI: Negative for abdominal pain, nausea, vomiting, diarrhea, and constipation, Back: Negative for injury and pain, MS/Extremity: Negative for injury and deformity, Skin: Negative for injury, rash, and discoloration, Neuro: Negative for headache, weakness, numbness, tingling, and seizure. Exam: 13:04 Constitutional: This is a well developed, well nourished patient who is awake, alert, kb and in no acute distress. Head/Face: Normocephalic, atraumatic. Chest/axilla: Normal chest wall appearance and motion. Nontender with no deformity. No lesions are appreciated. Cardiovascular: Regular rate and rhythm with a normal S1 and S2. No gallops, murmurs, or rubs. Normal PMI, no JVD. No pulse deficits. Respiratory: Lungs have equal breath sounds bilaterally, clear to auscultation and percussion. No rales, rhonchi or wheezes noted. No increased work of breathing, no retractions or nasal flaring. Abdomen/GI: Soft, non-tender, with normal bowel sounds. No distension or tympany. No guarding or rebound. No evidence of tenderness throughout. Skin: Warm, dry with normal turgor. Normal color with no rashes, no lesions, and no evidence of cellulitis. MS/ Extremity: Pulses equal, no cyanosis. Neurovascular intact. Full, normal range of motion. Neuro: Awake and alert, GCS 15, oriented to person, place, time, and situation. Cranial nerves II-XII grossly intact. Motor strength 5/5 in all extremities. Sensory grossly intact. Cerebellar exam normal. Normal gait. Vital Signs: 12:00 BP 118 / 66; Pulse 73; Resp 16; Temp 98.1(TE); Pulse Ox 99% on R/A; Weight 78.02 kg; ss Height 5 ft. 9 in. (175.26 cm); Pain 4/10; 12:00 Body Mass Index 25.40 (78.02 kg, 175.26 cm) MDM: 12:53 Patient medically screened. kb 13:02 Data reviewed: vital signs, nurses notes. Data interpreted: Pulse oximetry: on room air kb is 99 %. Interpretation: normal. Counseling: I had a detailed discussion with the patient and/or guardian regarding: the historical points, exam findings, and any diagnostic results supporting the discharge/admit diagnosis, the need for outpatient follow up, a family practitioner, a orthopedic surgeon, to return to the emergency department if symptoms worsen or persist or if there are any questions or concerns that arise at home. Medical screen evaluation completed. EMTALA emergency medical condition absent. Administered Medications: No medications were administered Disposition: 13:02 chronic bilateral positional wrist pain. kb 15:09 Co-signature as Attending Physician, Claus Stanford MD I agree with the assessment and luis plan of care. Disposition: 03/01/19 13:02 Discharged to Home. Impression: Encounter for screening, unspecified. - Condition is Stable. - Work release form, Medication Reconciliation Form, Thank You Letter, Antibiotic Education, Prescription Opioid Use form. - Follow up: Emergency Department; When: As needed; Reason: Worsening of condition. Follow up: Private Physician; When: 2 - 3 days; Reason: Recheck today's complaints, Continuance of care, Re-evaluation by your physician. Signatures: Joi Downs, ABDIRAHMAN INGRAM-Claus Mata MD MD cha Williams, Irene, RN RN Juliet Sheffield RN RN ss Corrections: (The following items were deleted from the chart) 13:04 13:02 03/01/2019 13:02 Discharged to Home. Impression: Encounter for screening, iw unspecified. Condition is Stable. Forms are Medication Reconciliation Form, Thank You Letter, Antibiotic Education, Prescription Opioid Use. Follow up: Emergency Department; When: As needed; Reason: Worsening of condition. Follow up: Private Physician; When: 2 - 3 days; Reason: Recheck today's complaints, Continuance of care, Re-evaluation by your physician. kb
--- NOTE | 2019-03-01 13:03 | ER ---
Nurse's Notes [facility] Name: Hiram Mobley Age: 33 yrs Sex: Male : 1985 Arrival Date: 03/01/2019 Time: 11:56 Bed 9 Private MD: None, None Diagnosis: Encounter for screening, unspecified Presentation: 03/01 11:58 Presenting complaint: Patient states: Bilateral wrist pain x 15 years. Pt reports he ss does not have a doctor and just wants to see if he has arthritis or not. Transition of care: patient was not received from another setting of care. Onset of symptoms is unknown. Risk Assessment: Do you want to hurt yourself or someone else? Patient reports no desire to harm self or others. Initial Sepsis Screen: Does the patient meet any 2 criteria? No. Patient's initial sepsis screen is negative. Does the patient have a suspected source of infection? No. Patient's initial sepsis screen is negative. Care prior to arrival: None. 11:58 Method Of Arrival: Ambulatory ss 11:58 Acuity: HEIDI 5 ss Triage Assessment: 13:04 General: Appears in no apparent distress. Behavior is calm, cooperative. iw Historical: - Allergies: 12:00 No Known Allergies; ss - Home Meds: 12:00 None [Active]; ss - PMHx: 12:00 None; ss - PSHx: 12:00 R hand; ss - Immunization history:: Adult Immunizations up to date. - Social history:: Smoking status: Patient/guardian denies using tobacco. - Ebola Screening: : Patient denies exposure to infectious person Patient denies travel to an Ebola-affected area in the 21 days before illness onset. Screenin:00 Abuse screen: Denies threats or abuse. Denies injuries from another. Nutritional iw screening: No deficits noted. Tuberculosis screening: No symptoms or risk factors identified. Fall Risk None identified. Assessment: 12:00 General: Appears in no apparent distress. comfortable, Behavior is calm, cooperative. iw Pain: Complains of pain in right wrist. Neuro: Level of Consciousness is awake, alert, obeys commands, Moves all extremities. Cardiovascular: Patient's skin is warm and dry. Respiratory: Respiratory effort is even, Respiratory pattern is regular. GI: No signs and/or symptoms were reported involving the gastrointestinal system. Derm: Skin is intact, is healthy with good turgor. Musculoskeletal: Range of motion: intact in all extremities. Vital Signs: 12:00 BP 118 / 66; Pulse 73; Resp 16; Temp 98.1(TE); Pulse Ox 99% on R/A; Weight 78.02 kg; ss Height 5 ft. 9 in. (175.26 cm); Pain 4/10; 12:00 Body Mass Index 25.40 (78.02 kg, 175.26 cm) ED Course: 11:56 Patient arrived in ED. dl4 11:57 None, None is Private Physician. dl4 12:00 Triage completed. ss 12:00 Arm band placed on right wrist. ss 12:00 Patient has correct armband on for positive identification. iw 12:39 Jo[facility] Down[facility]C [facility]. kb 12:40 Claus Stanford MD is Attending Physician. kb 12:51 Soo Joyce, RN is Primary Nurse. iw 13:03 No provider procedures requiring assistance completed. Patient did not have IV access iw during this emergency room visit. Administered Medications: No medications were administered Outcome: 13:02 Discharge ordered by MD. kb 13:03 Discharged to home ambulatory. iw 13:03 Condition: good 13:03 Instructed on follow up and referral plans. 13:04 Patient left the ED. iw Signatures: Joi Downs FNP-C FNP-Soo Gallardo, RN FRANCES Juliet Almaguer RN RN ss Luna, David dl4
== END 2019-03-01 13:04 | disposition home or self-care (01) ==
LOC: ER 11:54
DX: Z13.9 Encounter for screening, unspecified (principal); M25.532 Pain in left wrist; M25.531 Pain in right wrist
CPT/HCPCS: 99281

== ENCOUNTER 2025-06-21 16:50 | Emergency (ER) | payer OTHER, SELFPAY ==
--- OUTSIDE RECORDS SUMMARY | 2025-06-21 16:53 | XMS REPORT | Continuity of Care Document ---
Author Name Unknown Address [address] [place] [address] [facility] Address [address] [place] [address] [address] [place] [address] Care Team Providers Care Store Mgr Name Role Phone Unavailable Unavailable Unavailable Encounters Start Date/Time End Date/Time Encounter Type Admission Type Attending Clinicians Care Facility Care Department Encounter ID Source 2023-03-04 13:56:06 Outpatient [facility] [id number] [facility]
[2025-06-21] MEDS ORDERED: ONDANSETRON 4 MG/2 ML VIAL ONE (17:19)
[2025-06-21] MEDS ORDERED: NA CHLORIDE 0.9% 1,000 ML ONE (17:20)
[2025-06-21] MEDS ORDERED: MORPHINE 4 MG/ML SYR ONE (17:20)
[2025-06-21 17:23] LABS: Absolute Lymphocytes (CBC) 2.5 K/uL (0.7-4.9); Hematocrit 40.0 % (39.6-49.0); Hemoglobin 13.5 g/dL (13.6-17.9); MCH 30.4 pg (27.0-35.0); MCHC 33.8 g/dL (32.0-36.0); MCV 89.9 fL (80-100); MPV 8.3 fL (7.6-11.3); Nucleated RBC Absolute Count 0.0 (0-0); Nucleated Red Blood Cells % 0.1 % (0-0); RBC Red Blood Cell Count 4.44 M/uL (4.33-5.43); White Blood Count 8.60 thou/uL (4.3-10.9)
[2025-06-21 17:41] LABS: ALT/SGPT 23 U/L (16-61); AST/SGOT 15 U/L (15-37); Albumin 3.5 g/dL (3.4-5.0); Albumin/Globulin Ratio 1.1 (1.1-1.8); Alkaline Phosphatase 66 U/L (45-117); Anion Gap 5.9 mEq/L (5.0-15.0); BUN Blood Urea Nitrogen 17 mg/dL (7-18); Bilirubin Indirect, Calculated 0.1 mg/dL (0.2-0.8); Globulin 3.1 g/dL (2.3-3.5); Glucose Level 99 mg/dL (74-106); Potassium 3.9 mEq/L (3.5-5.1)
--- NOTE | 2025-06-21 17:43 | RAD REPORT ---
EXAM: CT brain without contrast HISTORY: TRAUMA COMPARISON: 04/13/2025 TECHNIQUE: Multiple contiguous axial images were obtained and a CT of the brain without contrast. Sag ittal and coronal reformats were performed. FINDINGS: No evidence of hydrocephalus, intracranial hemorrhage, or extra-axial fluid collection. The brain is normal in morphology. The calvarium is intact. The visualized paranasal sinuses and mastoid air cells are essentially clear . IMPRESSION: No evidence of acute intracranial abnormality. EXAM: CT of the cervical spine without contrast HISTORY: TRAUMA COMPARISON: None TECHNIQUE: Multiple contiguous axial images were obtained in a CT of the cervical spine without contr ast. Sagittal and coronal reformats were performed. FINDINGS: The vertebral bodies demonstrate normal height and alignment. No evidence of acute fracture or subluxation.. No degenerative changes are present. No prevertebral soft tissue swelling is seen. The posterior facets are well aligned. Normal alignment of the skull base with the cervical spine is seen. The lung apices are unremarkable. IMPRESSION: No evidence of acute osseous abnormality of the cervical spine.
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
[2025-06-21 18:49] VITALS: TEMP 98.6
[2025-06-21 18:51] VITALS: BP 130/99; O2SAT 99
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
== END 2025-06-21 18:45 | disposition home or self-care (01) ==
LOC: ER 16:50
DX: G89.11 Acute pain due to trauma (principal); F17.210 Nicotine dependence, cigarettes, uncomplicated
CPT/HCPCS: 96361; 85025; 80048; 36415; 86900; 86850; 86901; 80076; 70450; 72125; 71260; 74177; 73562 ×2; 73610; 96375; 96374; 99285; Q9967; J2405; J7030